=== PATIENT | female | born 1985 | race Caucasian/White ===

== ENCOUNTER 2025-03-06 05:06 | Inpatient (IN) | payer OTHER ==
[2025-03-06] MEDS ORDERED: fentaNYL 100 MCG/2 ML SDV IVPUSH PRN (19:35)
[2025-03-06] MEDS ORDERED: Nalbuphine HCl 10 MG/ 1ML Amp IM PRN (19:35)
[2025-03-06] MEDS ORDERED: Ondansetron 4 MG/2 ML SDV IVPUSH PRN (19:35)
[2025-03-06] MEDS ORDERED: Misoprostol 50 MCG (1/2 of 100 MCG) Tab PO PRN (19:35)
[2025-03-06] MEDS ORDERED: Carboprost Tromethamine 250 MCG/1 mL Vial IM PRN (19:35)
[2025-03-06] MEDS ORDERED: Sodium Chloride 0.9% 10 ML Syringe FLUSH PRN (19:35)
[2025-03-06] MEDS ORDERED: Misoprostol 50 MCG (1/2 of 100 MCG) Tab PO SCH (19:45)
[2025-03-06 20:50] LABS: PLATELET COUNT,PLT 314.0 10^3/uL (150-450); RED BLOOD CELL COUNT 4.4 10^6/uL (4.2-5.4); WHITE BLOOD CELL COUNT,WBC 10.7 10^3/uL (5.0-10.0)
[2025-03-06] MEDS: Lactated Ringers 1,000 ML IV SCH (23:33)
[2025-03-07] MEDS: Oxytocin/Normal Saline 30 UNIT/500 ML BAG IV SCH (01:54)
[2025-03-07] MEDS: Lactated Ringers 1,000 ML IV ONE (01:54)
[2025-03-07] MEDS ORDERED: Oxytocin 10 Units/1 ML SDV IM PRN (05:26)
[2025-03-07] MEDS: Benzocaine/Menthol 20%-0.5% Spray 78 GM Cannister TOP PRN (05:47)
[2025-03-07] MEDS: Witch Hazel Medicated Pads 100/Jar TOP PRN (05:49)
[2025-03-08] MEDS ORDERED: Ropivacaine 100 ML EPIDUR ONE (11:44)
[2025-03-08] MEDS ORDERED: fentaNYL 100 MCG/2 ML SDV EPIDUR ONE (11:44)
== END 2025-03-08 11:45 | disposition home or self-care (01) | DRG 807 ==
LOC: DL.OB 05:06 → OBSVTOIN 03-07 05:06
PROVIDERS: ADMIT Family Medicine; ATTEND Family Medicine
PROC: 10E0XZZ Delivery of Products of Conception, External Approach (ICD-10-PCS; principal; 2025-03-07)
PROC: 10907ZC Drainage of Amniotic Fluid, Therapeutic from Products of Conception, Via Natural or Artificial Opening (ICD-10-PCS; 2025-03-07)
PROC: 3E0R3BZ Introduction of Anesthetic Agent into Spinal Canal, Percutaneous Approach (ICD-10-PCS; 2025-03-07)
PROC: 00HU33Z Insertion of Infusion Device into Spinal Canal, Percutaneous Approach (ICD-10-PCS; 2025-03-07)
DX: O48.0 Post-term pregnancy (principal); Z37.0 Single live birth; Z3A.40 40 weeks gestation of pregnancy
CPT/HCPCS: 01967; 36415; 51702; 59409; 85027; A9270-GY; J2003; J2590; J2795; J3010; J7120